=== PATIENT | male | born 1980 | race Caucasian/White ===

== ENCOUNTER 2017-06-11 11:31 | Emergency (ER) | payer OTHER ==
[~2017-06-11] VITALS: Ht 175.3 cm; Wt 93.0 kg
[~2017-06-11 11:31] MED LIST: Cleocin HCl150 MG PO; IBUPROFEN PO; NAPR500 PO; TRAM50 PO; Ultram50 MG PO
[2017-06-11] MEDS ORDERED: PENVK500 PO (12:52)
== END 2017-06-11 13:04 | disposition home or self-care (01) ==
LOC: ER 11:31
DX: J02.0 Streptococcal pharyngitis (principal); F17.200 Nicotine dependence, unspecified, uncomplicated
CPT/HCPCS: 87430; 99283; J1100

== ENCOUNTER 2017-12-23 10:56 | Emergency (ER) | payer OTHER ==
[~2017-12-23] VITALS: Ht 175.3 cm; Wt 90.7 kg
[~2017-12-23 10:56] MED LIST changes: +PENVK500 PO
== END 2017-12-23 12:22 | disposition home or self-care (01) ==
LOC: ER 10:56
DX: M79.661 Pain in right lower leg (principal); Z79.2 Long term (current) use of antibiotics; F17.210 Nicotine dependence, cigarettes, uncomplicated
CPT/HCPCS: 93971; 99283-25

== ENCOUNTER 2019-02-23 12:37 | Emergency (ER) | payer OTHER ==
[~2019-02-23] VITALS: Ht 175.3 cm; Wt 99.8 kg
[2019-02-23 13:11] LABS: BASOPHILS ABSOLUTE AUTO 0.05 K/mm3 (0.00-0.23); BASOPHILS PERCENT AUTO 0 % (0-2); EOSINOPHILS ABSOLUTE AUTO 0.24 K/mm3 (0.00-0.68); EOSINOPHILS PERCENT AUTO 2 % (0-6); Hematocrit 43.6 % (37.0-53.0); Hemoglobin 14.5 g/dL (13.5-17.5); IMMATURE GRAN ABSOLUTE AUTO 0.03 K/mm3 (0.00-0.10); IMMATURE GRAN PERCENT AUTO 0 % (0-1); LYMPHOCYTES PERCENT AUTO 24 % (21-46); MONOCYTES ABSOLUTE AUTO 0.87 K/mm3 (0.16-1.47); MONOCYTES PERCENT AUTO 7 % (4-13); Mean Corpuscular HGB 30.4 pg (26.0-34.0); Mean Corpuscular HGB Conc 33.3 g/dL (31.5-36.5); Mean Corpuscular Volume 91 fL (80-100); Mean Platelet Volume 9.8 fL (9.1-12.4); NEUTROPHILS PERCENT AUTO 66 % (41-73); Platelet Count 336 K/mm3 (150-400); RDW Coefficient Variation 12.7 % (11.7-14.2); RDW Standard Deviation 41.6 fL (35.1-46.3); Red Blood Cell Count 4.77 M/mm3 (4.30-5.90); White Blood Cell Count 12.09 K/mm3 (4.00-11.30)
[2019-02-23 13:32] LABS: Alanine Aminotransfer (ALT/SGP 123 U/L (12-78); Albumin, Blood 3.6 g/dL (3.4-5.0); Albumin/Globulin Ratio 0.9 (0.8-1.8); Alk Phos 151 U/L (50-136); Anion Gap 6 mmol/L (6-16); Aspartate Aminotrans (AST/SGOT 55 U/L (12-37); Bilirubin, Total 0.3 mg/dL (0.1-1.0); Blood Urea Nitrogen 18 mg/dL (8-24); Bun/Creatinine Ratio 16.2 (12.0-20.0); CO2, Blood 27 mmol/L (21-32); Calcium, Blood 8.9 mg/dL (8.5-10.1); Chloride, Blood 106 mmol/L (98-108); Creatinine, Blood 1.11 mg/dL (0.60-1.20); Globulin, Blood 3.9 g/dL (2.2-4.0); Glomerular Filtration Rate >60 (60-); Glucose, Blood 116 mg/dL (70-99); Potassium, Blood 3.7 mmol/L (3.5-5.5); Sodium, Blood 139 mmol/L (136-145); Total Protein, Blood 7.5 g/dL (6.4-8.2)
[2019-02-23] MEDS ORDERED: ONDA4ODT SL (16:19)
[2019-02-23] MEDS ORDERED: BELPTAB PO (16:19)
[2019-02-23 18:03] LABS: Adenovirus F 40/41 Not Detected (NOT DETECT); Astrovirus Not Detected (NOT DETECT); Campylobacter Sp Not Detected (NOT DETECT); Cryptosporidium Not Detected (NOT DETECT); Cyclospora Cayetanensis Not Detected (NOT DETECT); E. Coli O157 Not Detected (NOT DETECT); Entamoeba Histolytica Not Detected (NOT DETECT); Enteroaggregative E. coli-EAEC Not Detected (NOT DETECT); Enteropathogenic E. coli-EPEC Not Detected (NOT DETECT); Enterotoxigenic E. coli-ETEC Not Detected (NOT DETECT); Giardia Lamblia Not Detected (NOT DETECT); Norovirus GI/GII Not Detected (NOT DETECT); Plesiomonas Shigelloides Not Detected (NOT DETECT); Rotavirus A Not Detected (NOT DETECT); Salmonella Sp Not Detected (NOT DETECT); Sapovirus Not Detected (NOT DETECT); Shiga Toxin-prod E. coli-STEC Not Detected (NOT DETECT); Shigella/Enteroin E. coli-EIEC Not Detected (NOT DETECT); Vibrio Cholerae Not Detected (NOT DETECT); Vibrio Sp Not Detected (NOT DETECT); Yersinia Enterocolitica Not Detected (NOT DETECT)
[2019-02-25 03:07] LABS: HBSAG SCREEN Negative (Negative); HEP A AB, IGM Negative (Negative); HEP B CORE AB, IGM Negative (Negative); HEP C VIRUS AB <0.1 (0.0-0.9)
== END 2019-02-23 16:24 | disposition home or self-care (01) ==
LOC: ER 12:37
PROVIDERS: Emergency Medicine
DX: E86.0 Dehydration (principal); R19.7 Diarrhea, unspecified; F17.200 Nicotine dependence, unspecified, uncomplicated
CPT/HCPCS: 0097U; 36415; 80053; 80074; 85025; 96360; 96361; 99284-25; J7030

== ENCOUNTER 2022-12-18 17:51 | Inpatient (IN) | payer OTHER ==
[~2022-12-18] VITALS: Ht 175.3 cm; Wt 96.2 kg
[~2022-12-18 17:51] MED LIST changes: +BELPTAB PO; +ONDA4ODT SL
[2022-12-18] MEDS ORDERED: METH40 PO (18:11)
[2022-12-18 18:14] LABS: BASOPHILS ABSOLUTE AUTO 0.05 K/mm3 (0.00-0.23); BASOPHILS PERCENT AUTO 1 % (0-2); Base Excess Venous 6.3 mmol/L; Bicarbonate Venous 27.1 mmol/L (24.0-30.0); EOSINOPHILS PERCENT AUTO 3 % (0-6); Hematocrit 45.7 % (37.0-53.0); Hemoglobin 15.4 g/dL (13.5-17.5); IMMATURE GRAN ABSOLUTE AUTO 0.02 K/mm3 (0.00-0.10); IMMATURE GRAN PERCENT AUTO 0 % (0-1); LYMPHOCYTES ABSOLUTE AUTO 2.16 K/mm3 (0.84-5.20); LYMPHOCYTES PERCENT AUTO 22 % (21-46); MONOCYTES ABSOLUTE AUTO 0.54 K/mm3 (0.16-1.47); MONOCYTES PERCENT AUTO 5 % (4-13); Mean Corpuscular HGB 29.4 pg (26.0-34.0); Mean Corpuscular HGB Conc 33.7 g/dL (31.5-36.5); Mean Corpuscular Volume 87 fL (80-100); Mean Platelet Volume 9.8 fL (9.1-12.4); NEUTROPHILS ABSOLUTE AUTO 6.84 K/mm3 (1.96-9.15); NEUTROPHILS PERCENT AUTO 69 % (41-73); PCO2 Venous 56.4 mmHg (38-42); Platelet Count 311 K/mm3 (150-400); RDW Coefficient Variation 12.8 % (11.7-14.2); RDW Standard Deviation 40.5 fL (35.1-46.3); Red Blood Cell Count 5.23 M/mm3 (4.30-5.90); White Blood Cell Count 9.91 K/mm3 (4.00-11.30); pH Blood Venous 7.36 (7.34-7.37)
[2022-12-18 18:33] LABS: Albumin/Globulin Ratio 0.9 (0.8-1.8); Bilirubin, Total 0.4 mg/dL (0.1-1.0); Bun/Creatinine Ratio 12.8 (12.0-20.0); Calcium, Blood 9.4 mg/dL (8.5-10.1); Creatinine, Blood 0.94 mg/dL (0.60-1.20); Globulin, Blood 4.4 g/dL (2.2-4.0); Potassium, Blood 3.9 mmol/L (3.5-5.5); Total Protein, Blood 8.4 g/dL (6.4-8.2)
[2022-12-18 21:05] LABS: Influenza A, PCR NEGATIVE (NEGATIVE); Influenza B, PCR NEGATIVE (NEGATIVE); Resp Syncytial Virus, PCR NEGATIVE (NEGATIVE); SARS-Cov-2 (COVID-19) PCR, MMC NEGATIVE (NEGATIVE)
[2022-12-18 23:00] VITALS: BP 139/93
--- NOTE | 2022-12-18 23:35 | NUR ---
ASSUMPTION OF CARE: PATIENT IS ALERT AND ORIENTED X4 MILDLY ANXIOUS, CONCERNED ABOUT RECIEVING METHADONE DOSING DUE TO OVERALL MALAISE AND FATIGUE. ENDORSES 2 DAYS WITHOUT DUE TO FEELING SO POOR. PATIENT IS MOSTLY OPEN ABOUT ABUSE. ENDORSES METHAMPHETAMINES AND FENTANYL USE TODAY. VERY INTENSE LIFE STRESSORS AT PLAY, MOTHER ~ MONTH AGO AND IS SELLING HER HOUSE. STAYING IN A MOTEL IN ORDER TO SELL THE HOUSE. PATIENT ARRIVED WITH 15L VIA OXYMIZER, SWITCHED TO AIRVO 40L AT 35% ORIGINALLY, HOWEVER, WITH TALKING FOR ASSESSMENT QUESTIONS AND NOT SITTING UP AT A 90 DEGREE. PATIENT HAD TO BE TURNED UP TO ~45% TO MAINTAIN >92. WILL REDUCE ONCE RECOVERED AND ABLE. RR UNDER 20 WITH NO EXERTION, MODERATE EXERTIONAL DYSPNEA. PENDING CT PE DENIES CHEST PAIN PRESSURE OR INCREASED SOB AT REST. LOOKS SOB, BUT WITH AIRVO DENIES INCREASED WORK OF BREATHING. CURRENLTY HR IN THE 110'S TO 120'S ST. DENIES GI/ ISSUES VODED 325 JOAN URINE IN THE URINAL, STANDING HE DID NOT DISATURATE. SKIN IS OVERALL DIRTY ON HANDS, WITH SOME MINOR PEDAL PULSES BEING SOFTER THAN RADIAL, ADDITIONALLY ARE MORE OLD WILL CONTINUE TO ASSESS. PATIENT HAS CELL PHONE IGNITION PREFORMED BY SELF AND CELL OPERATION SUPERVISOR. PATIENT WANTS FULL CODE TREATMENT AT [facility] TIME.
[2022-12-19] VITALS (8 sets, daily range): BP systolic 113–153; BP diastolic 53–87
--- NOTE | 2022-12-19 01:43 | NUR ---
COWS: SCORE OF 17 UPON GIVING PATIENT METHADONE. PATIENT VERY THANKFUL, WILL REASSESS AND EDIT WITH NEW RESULT AFTER THERAPUETIC IN SYSTEM.
--- NOTE | 2022-12-19 03:45 | NUR ---
EOS: PATIENT ENDORSES RELIEF WITH METHADONE COWS SCORE VERY LOW <5. PATIENT HAS BEEN UNCHANGED SINCE ASSUMPTION FROM ED. WILL CONTINUE TO MONITOR UNTIL SHIFT CHANGE.
[2022-12-19 04:18] LABS: BASOPHILS ABSOLUTE AUTO 0.01 K/mm3 (0.00-0.23); BASOPHILS PERCENT AUTO 0 % (0-2); EOSINOPHILS ABSOLUTE AUTO 0.01 K/mm3 (0.00-0.68); EOSINOPHILS PERCENT AUTO 0 % (0-6); Hematocrit 42.4 % (37.0-53.0); Hemoglobin 14.3 g/dL (13.5-17.5); IMMATURE GRAN ABSOLUTE AUTO 0.02 K/mm3 (0.00-0.10); IMMATURE GRAN PERCENT AUTO 0 % (0-1); LYMPHOCYTES ABSOLUTE AUTO 0.92 K/mm3 (0.84-5.20); LYMPHOCYTES PERCENT AUTO 11 % (21-46); MONOCYTES ABSOLUTE AUTO 0.04 K/mm3 (0.16-1.47); MONOCYTES PERCENT AUTO 1 % (4-13); Mean Corpuscular HGB 29.3 pg (26.0-34.0); Mean Corpuscular HGB Conc 33.7 g/dL (31.5-36.5); Mean Corpuscular Volume 87 fL (80-100); Mean Platelet Volume 10.5 fL (9.1-12.4); NEUTROPHILS ABSOLUTE AUTO 7.09 K/mm3 (1.96-9.15); NEUTROPHILS PERCENT AUTO 88 % (41-73); Platelet Count 304 K/mm3 (150-400); RDW Coefficient Variation 12.7 % (11.7-14.2); RDW Standard Deviation 39.9 fL (35.1-46.3); Red Blood Cell Count 4.88 M/mm3 (4.30-5.90); White Blood Cell Count 8.09 K/mm3 (4.00-11.30)
[2022-12-19 04:38] LABS: Bun/Creatinine Ratio 16.2 (12.0-20.0); Calcium, Blood 9.3 mg/dL (8.5-10.1); Creatinine, Blood 0.8 mg/dL (0.60-1.20); Potassium, Blood 3.9 mmol/L (3.5-5.5)
--- NOTE | 2022-12-19 12:24 | NUR ---
AM NOTE: PATIENT ALERT AND ORIENTED. VERY THANKFUL AND KIND REGARDING CARE. IND WITH REPOSITIONING AND USING URINAL. DENIES NUMBNESS/TINGLING/DIZZINESS. ON AIRVO THIS AM 40L AND 39% FIO2 WITH RR 18-22. ABLE TO TITRATE DOWN TO 6L HIGH FLOW NASAL CANNULA SATING MID 90'S. EVEN AND UNLABORED RESPIRATIONS. AT TIMES SOB WHEN TALKING CONSISTENTLY. DENIES COUGH. DENIES PAIN WITH DEEP BREATHING. TELE SHOWING SR/ST WITH HR 90-110'S. DENIES CHEST PAIN/PRESSURE/PALPITATIONS. BP STABLE. PPP. SALINE LOCKED. NO SIGNS OF EDEMA. BOWEL TONES PRESENT. EATING AND VOIDING WNL. USING URINAL AT BEDSIDE. DENIES ABDOMINAL PAIN/NAUSEA. PATIENT DISCUSSES METHADONE DOSING WITH THIS RN. PATIENT REPORTS TAKING 60MG DAILY, BUT HAS NOT BEEN TO CLINIC FOR A COUPLE DAYS. CALL PLACED BY NOC RN LAST NIGHT AND DELINQUENT NOTICE MACHINE OPERATOR ADAPT NURSE PRACTIONER REPORTS DOSE WAS REDUCED TO 40MG. PATIENT STATES HE WAS UNAWARE OF REDUCED DOSAGE DUE TO NOT BEING IN CLINIC FOR A COUPLE DAYS. DR. CARBALLO BY, THIS RN AND PATIENT DISCUSSED ABOVE ABOUT METHADONE DOSING. DR. CARBALLO ASKED THIS RN TO CHANGE TIME OF METHADONE TO DAILY AT DINNER TIME, KEEPING DOSAGE AT 60 MG FOR NOW. ORDER IN PLACE. PATIENT AWARE OF TIMING CHANGE. PATIENT RESTING IN BED WATCHING TV ON PERSONAL CELLPHONE. CALL LIGHT IN REACH. DISCUSSED FIRE RISK AND IGNITION SOURCES.
--- NOTE | 2022-12-19 17:30 | NUR ---
SHIFT SUMMARY: NO ACUTE CHANGES. VITAL SIGNS REMAIN STABLE. TITRATED DOWN TO 4L NASAL CANNULA SATING MID 90'S. TELE CONTINUES TO SHOW SR/ST. BP STABLE. DENIES PAIN THROUGOUT SHIFT. METHADONE DOSE GIVEN PER EMAR. DUONEBS GIVEN PER RESPIRATORY. EATING AND VOIDING WNL. CALL LIGHT IN REACH.
--- NOTE | 2022-12-19 19:36 | NUR ---
ASSUMPTION OF CAER: PATIENT IS RESTING PEACEFULLY, RR 18-22. SPO2 >96 ON NC WHICH WAS MUCH IMPROVED FROM PREVIOUS SHIFT. 5L. METHADONE WITH DINNER, COWS SCORE 0 AT THIS TIME. WILL MONITOR. SR TO ST. DENIES CHEST PAIN/PRESSURE OR SOB. VSS. A/OX4. WILL CONTINUE TO MONITOR.
[2022-12-20 00:15] VITALS: BP 147/73
[2022-12-20 03:12] VITALS: BP 143/89
[2022-12-20 07:11] VITALS: BP 139/91
--- NOTE | 2022-12-20 08:30 | NUR ---
AM NOTE: PATIENT ALERT AND ORIENTED. NEURO WNL. TELE SHOWING SR/ST WITH HR 90-110'S. DENIES CHEST PAIN/PRESSURE/PALPITATIONS. BP STABLE. NO EDEMA. TITRATED DOWN TO ROOM AIR, SATING 93-95%. DENIES SOB/COUGH. EVEN AND UNLABORED RESPIRATIONS. BOWEL TONES PRESENT. USING URINAL TO VOID. EATING AND VOIDING WNL. DENIES OVERALL PAIN. WATCHING TV AND EATING BREAKFAST AT THIS TIME. CALL LIGHT IN REACH.
[2022-12-20] MEDS ORDERED: NICO21TP TOP (11:00)
[2022-12-20] MEDS ORDERED: ALBU90OI INH (11:01)
[2022-12-20] MEDS ORDERED: SYMBICORT 160-4.6 GM INH (11:02)
[2022-12-20] MEDS ORDERED: Prednisone10 MG PO (11:04)
--- NOTE | 2022-12-20 11:58 | NUR ---
DISCHARGE: NO ACUTE CHANGES. PATIENT STABLE ON ROOM AIR. NO TELE EVENTS. DR. CARBALLO BY AND ORDERS FOR DC. NEW MEDICATIONS DISCUSSED WITH PATIENT AND INHALER EDUCATION PROVIDED WELL SMOKING CESSATION. MEDICATIONS FAXED OT [facility]. IV REMOVED WNL. PATIENT TAKEN TO CAR VIA WHEELCHAIR. INSTRUCTED TO FOLLOW UP WITH PCP WITHIN ONE WEEK. PATIENT LEFT UNIT WITH ALL PERSONAL BELONGINGS AND DISCHARGE PAPERWORK.
== END 2022-12-20 11:50 | disposition home or self-care (01) | DRG 189 ==
LOC: ER 17:51 → PCU 22:21
PROVIDERS: Physician Assistant; Student in an Organized Health Care Education/Training Program; ADMIT Internal Medicine
DX: J96.01 Acute respiratory failure with hypoxia (principal); J44.1 Chronic obstructive pulmonary disease with (acute) exacerbation; J96.02 Acute respiratory failure with hypercapnia; I10 Essential (primary) hypertension; F17.210 Nicotine dependence, cigarettes, uncomplicated; Z79.891 Long term (current) use of opiate analgesic; Z71.6 Tobacco abuse counseling; T38.0X5A Adverse effect of glucocorticoids and synthetic analogues, initial encounter; E16.2 Hypoglycemia, unspecified; Z20.822 Contact with and (suspected) exposure to COVID-19; Z79.899 Other long term (current) drug therapy; Z86.718 Personal history of other venous thrombosis and embolism
CPT/HCPCS: 0241U; 36415; 71045; 71260; 80048; 80053; 82803; 83880; 84484; 85025; 85379; 93005; 93010; 94640; 94644; 94664; 94760; 94762; 96374-59; 99291-25; A9270; C9113; J1650; J2930; Q9967

== ENCOUNTER 2025-05-16 06:04 | Emergency (ER) | payer OTHER ==
[~2025-05-16] VITALS: Ht 175.3 cm; Wt 54.4 kg
[~2025-05-16 06:04] MED LIST changes: +ALBU90OI INH; +METH40 PO; +NICO21TP TOP; +Prednisone10 MG PO; +SYMBICORT 160-4.6 GM INH
[2025-05-16] MEDS ORDERED: GLIP5 PO (06:27)
[2025-05-16] MEDS ORDERED: METF500 PO ×2 (06:27→11:18)
[2025-05-16] MEDS ORDERED: Ondansetron HCl 2 MG / ML 2ML Vial IV ONE (06:30)
[2025-05-16] MEDS ORDERED: Ketorolac Tromethamine 30mg Vial IV ONE (06:40)
[2025-05-16 06:53] LABS: BASOPHILS ABSOLUTE AUTO 0.05 K/mm3 (0.00-0.23); BASOPHILS PERCENT AUTO 0 % (0-2); EOSINOPHILS ABSOLUTE AUTO 0.05 K/mm3 (0.00-0.68); EOSINOPHILS PERCENT AUTO 0 % (0-6); Hematocrit 42.8 % (37.0-53.0); Hemoglobin 14.8 g/dL (13.5-17.5); IMMATURE GRAN ABSOLUTE AUTO 0.03 K/mm3 (0.00-0.10); IMMATURE GRAN PERCENT AUTO 0 % (0-1); LYMPHOCYTES ABSOLUTE AUTO 1.54 K/mm3 (0.84-5.20); LYMPHOCYTES PERCENT AUTO 13 % (21-46); MONOCYTES ABSOLUTE AUTO 0.45 K/mm3 (0.16-1.47); MONOCYTES PERCENT AUTO 4 % (4-13); Mean Corpuscular HGB Conc 34.6 g/dL (31.5-36.5); Mean Corpuscular Volume 86 fL (80-100); NEUTROPHILS ABSOLUTE AUTO 9.52 K/mm3 (1.96-9.15); NEUTROPHILS PERCENT AUTO 82 % (41-73); NRBC ABSOLUTE 0.00 K/mm3 (0.00-0.02); NRBC Auto 0.0 /100 WBC (0.0-0.2); Platelet Count 211 K/mm3 (150-400); RDW Coefficient Variation 12.4 % (11.7-14.2); RDW Standard Deviation 39.2 fL (35.1-46.3)
[2025-05-16] MEDS ORDERED: Morphine Sulfate 4 MG/1 ML Injection IV ONE (07:05)
[2025-05-16 07:29] LABS: Alanine Aminotransfer (ALT/SGP 88.0 U/L (12-78); Albumin, Blood 3.5 g/dL (3.4-5.0); Albumin/Globulin Ratio 0.8 (0.8-1.8); Anion Gap 12.0 mmol/L (3-11); Aspartate Aminotrans (AST/SGOT 28.0 U/L (12-37); Bilirubin, Total 0.6 mg/dL (0.1-1.0); Blood Urea Nitrogen 18.0 mg/dL (8-24); CO2, Blood 25.0 mmol/L (21-32); Calcium, Blood 9.3 mg/dL (8.5-10.1); Chloride, Blood 100.0 mmol/L (98-108); Creatinine, Blood 0.75 mg/dL (0.60-1.20); Globulin, Blood 4.3 g/dL (2.2-4.0); Glucose, Blood 437.0 mg/dL (70-99); Magnesium, Blood 2.0 mg/dL (1.6-2.4); Potassium, Blood 4.3 mmol/L (3.5-5.5); Sodium, Blood 133.0 mmol/L (136-145); Total Protein, Blood 7.8 g/dL (6.4-8.2)
[2025-05-16 07:31] LABS: Influenza A, PCR NEGATIVE (NEGATIVE); Influenza B, PCR NEGATIVE (NEGATIVE); Resp Syncytial Virus, PCR NEGATIVE (NEGATIVE); SARS-Cov-2 (COVID-19) PCR, MMC NEGATIVE (NEGATIVE)
[2025-05-16] MEDS ORDERED: Insulin Regular 100 Unit/ML 1ML Dose IV ONE ×2 (09:40→10:15)
[2025-05-16] MEDS ORDERED: ONDA4ODT MM (11:18)
[2025-05-16 11:41] VITALS: BP 127/83
== END 2025-05-16 11:42 | disposition home or self-care (01) ==
LOC: ER 06:04
PROVIDERS: Student in an Organized Health Care Education/Training Program
DX: E11.65 Type 2 diabetes mellitus with hyperglycemia (principal); E86.0 Dehydration; R11.2 Nausea with vomiting, unspecified; R10.9 Unspecified abdominal pain; J44.9 Chronic obstructive pulmonary disease, unspecified; I10 Essential (primary) hypertension; F17.210 Nicotine dependence, cigarettes, uncomplicated; Z79.84 Long term (current) use of oral hypoglycemic drugs; Z79.899 Other long term (current) drug therapy
CPT/HCPCS: 74177; 80053; 82947; 83036; 83690; 83735; 85025; 87637; 93005; 93010; 96361; 96374; 96375; 99284-25; J1815; J1885; J2270; J2405; J7120; Q9967